=== PATIENT | female | born 1990 ===

== ENCOUNTER 2017-08-22 14:34 | Outpatient (CLI) | payer OTHER | END 2017-08-22 20:20 | disposition home or self-care (01) | LOC: NST 14:34 | DX: O30.002 Twin pregnancy, unspecified number of placenta and unspecified number of amniotic sacs, second trimester (principal); Z34.02 Encounter for supervision of normal first pregnancy, second trimester ==

== ENCOUNTER 2017-09-04 12:07 | Outpatient (CLI) | payer OTHER | END 2017-09-04 13:07 | disposition home or self-care (01) | LOC: NST 12:07 | DX: O30.003 Twin pregnancy, unspecified number of placenta and unspecified number of amniotic sacs, third trimester (principal); Z34.83 Encounter for supervision of other normal pregnancy, third trimester ==

== ENCOUNTER 2017-09-18 12:20 | Outpatient (CLI) | payer OTHER | END 2017-09-18 13:09 | disposition home or self-care (01) | LOC: NST 12:20 | DX: Z34.03 Encounter for supervision of normal first pregnancy, third trimester (principal) ==

== ENCOUNTER 2017-10-03 08:49 | Outpatient (CLI) | payer OTHER | END 2017-10-03 09:34 | disposition home or self-care (01) | LOC: NST 08:49 | DX: O30.003 Twin pregnancy, unspecified number of placenta and unspecified number of amniotic sacs, third trimester (principal); Z34.03 Encounter for supervision of normal first pregnancy, third trimester ==

== ENCOUNTER 2017-10-09 10:19 | Outpatient (CLI) | payer OTHER | END 2017-10-09 11:17 | disposition home or self-care (01) | LOC: NST 10:19 | DX: O30.003 Twin pregnancy, unspecified number of placenta and unspecified number of amniotic sacs, third trimester (principal); Z34.83 Encounter for supervision of other normal pregnancy, third trimester ==

== ENCOUNTER 2017-10-13 12:28 | Inpatient (IN) | payer OTHER ==
[~2017-10-13] VITALS: Ht 167.6 cm; Wt 86.6 kg
[2017-10-13] MEDS ORDERED: IRON325 MG PO (13:30)
[2017-10-13] MEDS ORDERED: PRENATAL TABLE1 EAC2 PO (13:30)
[2017-10-13] MEDS ORDERED: NIFE60TA3 PO (13:31)
== END 2017-10-18 11:26 | DRG 766 ==
LOC: O/R 12:28 → OB/GYN 12:28 → LDR 12:28 → O/R 10-15 17:22 → OB/GYN 10-15 19:31
PROVIDERS: Obstetrics & Gynecology
PROC: 3E033VJ Introduction of Other Hormone into Peripheral Vein, Percutaneous Approach (ICD-10-PCS; 2017-10-15)
PROC: 4A1HXCZ Monitoring of Products of Conception, Cardiac Rate, External Approach (ICD-10-PCS; 2017-10-15)
PROC: 10D00Z1 Extraction of Products of Conception, Low, Open Approach (ICD-10-PCS; principal; 2017-10-15 16:15)
DX: O61.0 Failed medical induction of labor (principal); Z3A.33 33 weeks gestation of pregnancy; Z37.2 Twins, both liveborn